=== PATIENT | female | born 1965 | race Caucasian/White ===

== ENCOUNTER 2016-12-30 03:58 | Emergency (ER) | payer MEDICAID, OTHER ==
--- NOTE | 2016-12-30 04:10 | EDM.PDOC ---
ED HPI GENERAL MEDICAL PROBLEM - General Stated Complaint: [facility] Time Seen by Provider: 12/30/16 03:58 Source of Information: Reports: Patient, EMS, RN Notes Reviewed History Limitations: Reports: No Limitations - History of Present Illness INITIAL COMMENTS - FREE TEXT/NARRATIVE: The patient is brought by EMS after the patient's was unable to wake the patient. According to the patient's , who arrived shortly after the patient, the patient has had similar responses for the past few nights. He states that she slowly wakes up in the morning, but that she was not waking up this morning. When the paramedics arrived tonight, they found her vitals to be stable, although her blood pressure was somewhat elevated. Her blood glucose was 141. She did not respond, even to sternal rubs, however, when they raised her hand up over her head, she held her arm up. Paramedics did not give any medications. The patient apparently has a history of psychiatric illness, untreated for the past 10 years. Neither the patient nor the patient's recall what the diagnoses were. Here in the ED, the patient fully woke on command. When asked her she feels, she stated that she has been feeling dizzy for the past couple of hours. She was able to provide a full history, and cooperated with my examination. - Related Data Allergies Allergy/AdvReac Type Severity Reaction Status Date / Time No Known Allergies Allergy Verified 12/30/16 04:06 Home Meds: Home Meds . [No Known Home Meds] 12/30/16 [History] Past Medical History Endocrine/Metabolic History: Reports: Obesity/BMI 30+ - Past Surgical History Female Surgical History: Reports: Tubal Ligation Social & Family History - Tobacco Use Smoking Status *Q: Never Smoker - Alcohol Use Alcohol Use History: No - Recreational Drug Use Recreational Drug Use: No - Living Situation & Occupation Living situation: Reports: , with Spouse Occupation: Employed ([employer]) ED ROS GENERAL - Review of Systems Review Of Systems: See Below Constitutional: Reports: No Symptoms HEENT: Reports: No Symptoms Respiratory: Reports: No Symptoms Cardiovascular: Reports: No Symptoms Endocrine: Reports: No Symptoms GI/Abdominal: Reports: Constipation (x 4 days) : Reports: No Symptoms Musculoskeletal: Reports: No Symptoms Skin: Reports: No Symptoms Neurological: Reports: No Symptoms Psychiatric: Reports: No Symptoms Hematologic/Lymphatic: Reports: No Symptoms Immunologic: Reports: No Symptoms ED EXAM, GENERAL - Physical Exam Exam: See Below Exam Limited By: No Limitations General Appearance: Alert, WD/WN, No Apparent Distress Eye Exam: Bilateral Eye: Normal Inspection Ears: Normal External Exam, Hearing Grossly Normal Nose: Normal Inspection, No Blood Throat/Mouth: Normal Inspection, Normal Lips, Normal Voice, No Airway Compromise Head: Atraumatic, Normocephalic Neck: Normal Inspection, Full Range of Motion Respiratory/Chest: No Respiratory Distress, Lungs Clear, Normal Breath Sounds, No Accessory Muscle Use Cardiovascular: Normal Peripheral Pulses, Regular Rate, Rhythm, No Gallop, No JVD, No Murmur, No Rub Peripheral Pulses: 4+: Radial (L), Radial (R) GI/Abdominal: Normal Bowel Sounds, Soft, Non-Tender, No Organomegaly, No Distention, No Abnormal Bruit, No Mass, Other (Obese) (Female) Exam: Deferred Rectal (Female) Exam: Deferred Back Exam: Normal Inspection, Full Range of Motion, NT Extremities: Normal Inspection, Normal Range of Motion, No Pedal Edema, Normal Capillary Refill Neurological: Alert, Oriented, CN II-XII Intact, Normal Cognition, No Motor/ Sensory Deficits Psychiatric: Normal Affect Skin Exam: Warm, Dry, Intact, Normal Color, No Rash Lymphatic: No Adenopathy EKG INTERPRETATION EKG Date: 12/30/16 Time: 04:25 Rhythm: NSR Rate (Beats/Min): 62 Aldie: LAD-Left Aldie Deviation P-Wave: Present QRS: Normal ST-T: Normal QT: Normal Comparison: NA - No Prior EKG Course - Vital Signs Last Recorded V/S: Last Vital Signs Temp 36.8 C 12/30/16 04:06 Pulse 68 12/30/16 04:06 Resp 11 L 12/30/16 04:06 BP 151/86 H 12/30/16 04:06 Pulse Ox 95 12/30/16 04:06 Orthostatic Blood Pressure [ 126/75 Standing] Orthostatic Blood Pressure [ 129/77 Sitting] Orthostatic Blood Pressure [ 111/92 Supine] - Orders/Labs/Meds Orders: Active Orders 24 hr Category Date Time Status EKG Documentation Completion [RC] STAT Care 12/30/16 04:14 Active Orthostatic Vital Signs [RC] STAT Care 12/30/16 04:16 Active Orthostatic Vital Signs [RC] STAT Care 12/30/16 05:13 Active Head wo Cont [CT] Stat Exams 12/30/16 04:15 Taken Labs: Laboratory Tests 12/30/16 12/30/16 12/30/16 Range/Units 04:35 04:35 04:35 WBC 7.08 (3.98-10.04) K/mm3 RBC 4.24 (3.98-5.22) M/mm3 Hgb 12.1 (11.2-15.7) gm/L Hct 37.1 (34.1-44.9) % MCV 87.5 (79.4-94.8) fl MCH 28.5 (25.6-32.2) pg MCHC 32.6 (32.2-35.5) g/dl RDW Std Deviation 42.7 (36.4-46.3) fL Plt Count 376 H (182-369) K/mm3 MPV 10.0 (9.4-12.3) fl Neutrophils % (Manual) 67 H (40-60) % Band Neutrophils % 0 (0-10) % Lymphocytes % (Manual) 22 (20-40) % Atypical Lymphs % 0 % Monocytes % (Manual) 10 (2-10) % Eosinophils % (Manual) 0 L (0.7-5.8) % Basophils % (Manual) 1 (0.1-1.2) Platelet Estimate Adequate Plt Morphology Comment Normal Polychromasia 1+ slight Hypochromasia 1+ slight Poikilocytosis 1+ slight Anisocytosis 1+ slight Microcytosis 1+ slight Macrocytosis 1+ slight RBC Morph Comment Abnormal Sodium 142 (136-145) mEq/L Potassium 2.9 L (3.5-5.1) mEq/L Chloride 106 (98-107) mEq/L Carbon Dioxide 25 (21-32) mEq/L Anion Gap 13.9 (5-15) BUN 10 (7-18) mg/dL Creatinine 0.9 (0.55-1.02) mg/dL Est Cr Clr Drug Dosing TNP Estimated GFR (MDRD) > 60 (>60) mL/min BUN/Creatinine Ratio 11.1 L (14-18) Glucose 120 H (74-106) mg/dL Calcium 8.3 L (8.5-10.1) mg/dL Total Bilirubin 0.4 (0.2-1.0) mg/dL AST 14 L (15-37) U/L ALT 22 (14-59) U/L Alkaline Phosphatase 64 (46-116) U/L Total Protein 7.0 (6.4-8.2) g/dl Albumin 3.5 (3.4-5.0) g/dl Globulin 3.5 gm/dL Albumin/Globulin Ratio 1.0 (1-2) TSH 3rd Generation 1.391 (0.358-3.74) uIU/mL Urine Color (Yellow) Urine Appearance (Clear) Urine pH (5.0-8.0) Ur Specific [place] (1.005-1.030) Urine Protein (Negative) Urine Glucose (UA) (Negative) Urine Ketones (Negative) Urine Occult Blood (Negative) Urine Nitrite (Negative) Urine Bilirubin (Negative) Urine Urobilinogen (0.2-1.0) Ur Leukocyte Esterase (Negative) Urine RBC (0-5) /hpf Urine WBC (0-5) /hpf Ur Epithelial Cells (0-5) /hpf Urine Bacteria (FEW) /hpf Urine Mucus (FEW) /hpf Urine HCG, Qual (NEGATIVE) Salicylates 0.6 L (2.8-20) mg/dL Urine Opiates Screen (NEGATIVE) Ur Buprenorphine Scrn (NEGATIVE) Ur Oxycodone Screen (NEGATIVE) Urine Methadone Screen (NEGATIVE) Ur Propoxyphene Screen (NEGATIVE) Acetaminophen 0 L (10-30) ug/mL Ur Barbiturates Screen (NEGATIVE) Ur Tricyclics Screen (NEGATIVE) Ur Phencyclidine Scrn (NEGATIVE) Ur Amphetamine Screen (NEGATIVE) U Methamphetamines Scrn (NEGATIVE) U Benzodiazepines Scrn (NEGATIVE) U Cocaine Metab Screen (NEGATIVE) U Marijuana (THC) Screen (NEGATIVE) Ethyl Alcohol 0.00 (0.00) gm% 12/30/16 12/30/16 12/30/16 Range/Units 04:55 04:55 04:55 WBC (3.98-10.04) K/mm3 RBC (3.98-5.22) M/mm3 Hgb (11.2-15.7) gm/L Hct (34.1-44.9) % MCV (79.4-94.8) fl MCH (25.6-32.2) pg MCHC (32.2-35.5) g/dl RDW Std Deviation (36.4-46.3) fL Plt Count (182-369) K/mm3 MPV (9.4-12.3) fl Neutrophils % (Manual) (40-60) % Band Neutrophils % (0-10) % Lymphocytes % (Manual) (20-40) % Atypical Lymphs % % Monocytes % (Manual) (2-10) % Eosinophils % (Manual) (0.7-5.8) % Basophils % (Manual) (0.1-1.2) Platelet Estimate Plt Morphology Comment Polychromasia Hypochromasia Poikilocytosis Anisocytosis Microcytosis Macrocytosis RBC Morph Comment Sodium (136-145) mEq/L Potassium (3.5-5.1) mEq/L Chloride (98-107) mEq/L Carbon Dioxide (21-32) mEq/L Anion Gap (5-15) BUN (7-18) mg/dL Creatinine (0.55-1.02) mg/dL Est Cr Clr Drug Dosing Estimated GFR (MDRD) (>60) mL/min BUN/Creatinine Ratio (14-18) Glucose (74-106) mg/dL Calcium (8.5-10.1) mg/dL Total Bilirubin (0.2-1.0) mg/dL AST (15-37) U/L ALT (14-59) U/L Alkaline Phosphatase (46-116) U/L Total Protein (6.4-8.2) g/dl Albumin (3.4-5.0) g/dl Globulin gm/dL Albumin/Globulin Ratio (1-2) TSH 3rd Generation (0.358-3.74) uIU/mL Urine Color Yellow (Yellow) Urine Appearance Slt cloudy H (Clear) Urine pH 6.0 (5.0-8.0) Ur Specific [place] > or = 1.030 (1.005-1.030) Urine Protein 1+ H (Negative) Urine Glucose (UA) Negative (Negative) Urine Ketones 2+ H (Negative) Urine Occult Blood 1+ H (Negative) Urine Nitrite Negative (Negative) Urine Bilirubin 1+ H (Negative) Urine Urobilinogen 0.2 (0.2-1.0) Ur Leukocyte Esterase Negative (Negative) Urine RBC 0-5 (0-5) /hpf Urine WBC 0-5 (0-5) /hpf Ur Epithelial Cells 0-5 (0-5) /hpf Urine Bacteria Not seen (FEW) /hpf Urine Mucus Many H (FEW) /hpf Urine HCG, Qual Negative (NEGATIVE) Salicylates (2.8-20) mg/dL Urine Opiates Screen Negative (NEGATIVE) Ur Buprenorphine Scrn Negative (NEGATIVE) Ur Oxycodone Screen Negative (NEGATIVE) Urine Methadone Screen Negative (NEGATIVE) Ur Propoxyphene Screen Negative (NEGATIVE) Acetaminophen (10-30) ug/mL Ur Barbiturates Screen Negative (NEGATIVE) Ur Tricyclics Screen Negative (NEGATIVE) Ur Phencyclidine Scrn Negative (NEGATIVE) Ur Amphetamine Screen Negative (NEGATIVE) U Methamphetamines Scrn Negative (NEGATIVE) U Benzodiazepines Scrn Negative (NEGATIVE) U Cocaine Metab Screen Negative (NEGATIVE) U Marijuana (THC) Screen Negative (NEGATIVE) Ethyl Alcohol (0.00) gm% Meds: Medications Discontinued Medications Generic Name Dose Route Start Last Admin Trade Name Freq PRN Reason Stop Dose Admin Sodium Chloride 1,000 mls @ 999 mls/hr 12/30/16 05:12 12/30/16 05:19 Normal Saline IV 12/30/16 06:12 999 mls/hr ONETIME ONE Administration Potassium Chloride 40 meq 12/30/16 05:33 12/30/16 05:40 Klor-Con M20 PO 12/30/16 05:34 40 meq ONETIME STA Administration - Re-Assessments/Exams Free Text/Narrative Re-Assessment/Exam: 12/30/16 05:06 CT of the head without contrast is read by [facility] as "Normal head/ brain CT." 12/30/16 05:13 The patient is found to be mildly orthostatic. I have ordered 1 L IV fluid, followed by repeat orthostatics. 12/30/16 05:36 The patient's potassium is depressed at 2.9. I have ordered oral potassium 40 mEq. 12/30/16 06:44 Following 1 L of IV fluid, the patient is no longer orthostatic. 12/30/16 06:46 Test results discussed with the patient and her . Today's workup is grossly unremarkable. The patient appears to have been faking that she was unresponsive. I am recommending that she follow-up with a Psychiatrist. Departure - Departure Time of Disposition: 06:47 Disposition: Home, Self-Care 01 Condition: Good Clinical Impression: Person feigning illness, Hypokalemia, Orthostasis - Discharge Information Additional Instructions: You were seen in the emergency room for appearing to be unresponsive, however, you were found to be awake, feigning unresponsiveness. Workup in the ER included blood work, a urinalysis, a urine test, a urine drug screen, an ECG, a CT scan of your head, and positional blood pressure checks. Your potassium was found to be modestly depressed at 2.9. You were given oral potassium in the ER. You were found to be mildly orthostatic, which resolved after being given IV fluid. The remainder of your workup was unremarkable. We recommend that you follow-up with a Psychiatrist. If any other problems, please do not hesitate to return to the ER. - My Orders Last 24 Hours: My Active Orders 12/30/16 04:14 EKG Documentation Completion [RC] STAT 12/30/16 04:15 Head wo Cont [CT] Stat 12/30/16 04:16 Orthostatic Vital Signs [RC] STAT 12/30/16 05:13 Orthostatic Vital Signs [RC] STAT - Assessment/Plan Last 24 Hours: My Active Orders 12/30/16 04:14 EKG Documentation Completion [RC] STAT 12/30/16 04:15 Head wo Cont [CT] Stat 12/30/16 04:16 Orthostatic Vital Signs [RC] STAT 12/30/16 05:13 Orthostatic Vital Signs [RC] STAT
[2016-12-30 04:11] VITALS: BP 151/86
[2016-12-30] MEDS ORDERED: Sodium Chloride 0.9% 1,000 ML IV ONE (05:12)
[2016-12-30 05:18] LABS: ACETAMINOPHEN 0 ug/mL (10-30)
[2016-12-30] MEDS ORDERED: Potassium Chloride 20 MEQ Tab.ER PO STA (05:33)
--- NOTE | 2016-12-31 10:04 | CT ---
Head CT Technique: Multiple axial sections through the brain were obtained. Intravenous contrast was not utilized. Comparison: No previous intracranial imaging. Findings: Ventricles along the basal cisterns and sulci over the convexities are within normal limits for the patient's age. No abnormal parenchymal densities are seen. No evidence of intracranial hemorrhage. No midline shift or mass effect is seen. Bone window settings were reviewed which show the visualized sinuses do appear clear. No acute calvarial abnormality is seen. Impression: 1. No acute intracranial abnormality is identified. Diagnostic code #1 I agree with preliminary report issued by [facility] ([facility] report finalized on 12/30/16, 6:03 AM Central Time)
== END 2016-12-30 07:04 | disposition home or self-care (01) ==
LOC: JD.ED 03:58
DX: E87.6 Hypokalemia (principal); I95.1 Orthostatic hypotension; E66.9 Obesity, unspecified; Z76.5 Malingerer [conscious simulation]; Z98.51 Tubal ligation status; F41.0 Panic disorder [episodic paroxysmal anxiety]; Z98.890 Other specified postprocedural states
CPT/HCPCS: 36415; 70450; 71010; 80053; 80306; 81001; 81025; 84443; 85025; 85379; 86140; 93005; 96360; 96361; 96365; 96375; 99285; A9270; G0480; J2060; J3480; J7040; P9612; 99284

== ENCOUNTER 2016-12-30 21:02 | Emergency (ER) | payer OTHER ==
[2016-12-30 21:14] VITALS: BP 148/78
[2016-12-30] MEDS ORDERED: Sodium Chloride 0.9% 1,000 ML IV SCH (21:30)
--- NOTE | 2016-12-30 21:33 | EDM.PDOC ---
ED HPI GENERAL MEDICAL PROBLEM - General Chief Complaint: Respiratory Problem Stated Complaint: HAVING A TOUGH TIME BREATHING/FEELING FAINT Time Seen by Provider: 12/30/16 21:26 Source of Information: Reports: Patient History Limitations: Reports: No Limitations - History of Present Illness INITIAL COMMENTS - FREE TEXT/NARRATIVE: 51-year-old female attends the ED tonight with hyperventilation syndrome. She states that she feels generally unwell generally weak. She states she did drink lots of water today and some tea but did not have any electrolytes anything she ate or drank much today. He was seen through the ED last night had complete workup by Dr. Hoskins including CT of the brain. All was normal. When she came to the ED her respiratory rate was 21-29/m obvious hyperventilation syndrome and the nurse was able to coax her into slowing her breathing write down. This improved her numbness tingling in her feeling like she was going to faint or pass out. Patient has a underlying history of psychiatric illness and was able to schizophrenia when she was younger hasn't been on medication for about 10 years. She states she is sleeping okay. Family members i.e. a daughter and indicate that she is under a good deal of stress as of recent with a pulse friend developing cancer and a family member being ill. She does not cope well with these things. No recent travels history. Sats were as low as 93% at times and she is a nonsmoker. She was claiming of course shortness of breath. Denies cough or sputum production. No fever or chills. 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 Onset: Sudden Onset Date: 12/30/16 Onset Time: 21:00 Duration: Minutes: Location: Reports: Generalized Quality: Reports: Same as Previous Episode Severity: Moderate Improves with: Reports: None, Other (Did feel better once the nurse was able to coax her into slowing her breathing rate down.) Worsens with: Reports: Movement Context: Denies: Activity, Exercise, Lifting, Sick Contact, Trauma, Other Associated Symptoms: Reports: Loss of Appetite, Malaise, Shortness of Breath, Weakness. Denies: Confusion, Chest Pain, Cough, cough w sputum, Diaphoresis, Fever/Chills, Headaches, Nausea/Vomiting, Rash, Seizure Treatments [employer]: Reports: Other (see below) (None.) Chest Pain Score (Numeric/FACES): 4 - Related Data Allergies Allergy/AdvReac Type Severity Reaction Status Date / Time No Known Allergies Allergy Verified 12/30/16 04:06 Home Meds: Home Meds ALPRAZolam [Xanax] 0.25 mg PO BID #24 tablet 12/30/16 [Rx] Citalopram [Celexa] 20 mg PO DAILY #30 tablet 12/30/16 [Rx] Past Medical History - Past Health History Medical/Surgical History: Denies Medical/Surgical History Other Psychiatric History: Pt has history of mental illness. Cannot remember diagnoses. Endocrine/Metabolic History: Reports: Obesity/BMI 30+ - Past Surgical History Female Surgical History: Reports: Tubal Ligation Social & Family History - Tobacco Use Smoking Status *Q: Never Smoker - Caffeine Use Caffeine Use: Reports: Tea - Recreational Drug Use Recreational Drug Use: No - Living Situation & Occupation Living situation: Reports: , with Spouse Occupation: Employed ([employer]) ED ROS GENERAL - Review of Systems Review Of Systems: See Below Constitutional: Reports: Malaise, Weakness, Fatigue, Decreased Appetite. Denies : Fever, Chills, Weight Loss HEENT: Reports: Other Respiratory: Reports: Shortness of Breath. Denies: No Symptoms, Wheezing, Pleuritic Chest Pain, Cough, Sputum, Hemoptysis, Other Cardiovascular: Reports: Lightheadedness, Palpitations. Denies: Chest Pain, Blood Pressure Problem, Claudication, Dyspnea on Exertion, Edema, Orthopnea Endocrine: Reports: Fatigue GI/Abdominal: Reports: Decreased Appetite. Denies: Abdominal Pain, Anorexia, Black Stool, Difficulty Swallowing, Distension, Flatus, Hematemesis, Hematochezia, Mucous in Stool, Nausea : Reports: Frequency Musculoskeletal: Reports: No Symptoms Skin: Reports: No Symptoms Neurological: Reports: Confusion, Dizziness, Numbness, Paresthesia (Upper extremities and periorally.), Tingling, Difficulty Walking, Weakness. Denies: Headache, Pre-Existing Deficit ( Perioral paresthesias in hands and arms.), Seizure, Trouble Speaking, Gait Disturbance Psychiatric: Reports: Anxiety Hematologic/Lymphatic: Reports: No Symptoms Immunologic: Reports: No Symptoms ED EXAM, GENERAL - Physical Exam Exam: See Below Exam Limited By: No Limitations General Appearance: Alert, WD/WN, Mild Distress (Hyperventilating.) Eye Exam: Bilateral Eye: Normal Inspection Throat/Mouth: Normal Inspection, Normal Lips, Normal Teeth, Normal Oropharynx Head: Atraumatic, Normocephalic Neck: Normal Inspection, Supple, Non-Tender, Full Range of Motion. No: Carotid Bruit, Lymphadenopathy (L), Lymphadenopathy (R) Respiratory/Chest: Lungs Clear, Normal Breath Sounds, No Accessory Muscle Use, Respiratory Distress (Mild tachypnea 21-28/m i.e. hyperventilation syndrome.). No: Crackles, Rales, Rhonchi, Wheezing, Accessory Muscle Use, Retractions Cardiovascular: Normal Peripheral Pulses, Regular Rate, Rhythm, No Edema, No Murmur Peripheral Pulses: 2+: Posterior Tibial (L), Posterior Tibial (R), Dorsalis Pedis (L), Dorsalis Pedis (R) GI/Abdominal: Normal Bowel Sounds, Soft, Non-Tender, No Organomegaly, No Distention, No Abnormal Bruit Back Exam: Normal Inspection, Full Range of Motion. No: CVA Tenderness (L), CVA Tenderness (R) Extremities: Normal Inspection, Normal Range of Motion, Non-Tender, No Pedal Edema, Normal Capillary Refill Neurological: Alert, Oriented, CN II-XII Intact, Normal Cognition, Normal Gait, Normal Reflexes, No Motor/Sensory Deficits Psychiatric: Anxious. No: Tearful Skin Exam: Warm, Dry, Intact, Normal Color, No Rash Lymphatic: No Adenopathy Course - Vital Signs Last Recorded V/S: Last Vital Signs Temp 37.2 C 12/30/16 21:13 Pulse 72 12/30/16 21:13 Resp 28 H 12/30/16 21:13 BP 148/78 H 12/30/16 21:13 Pulse Ox 98 12/30/16 21:13 - Orders/Labs/Meds Orders: Active Orders 24 hr Category Date Time Status Chest 1V Frontal [CR] Stat Exams 12/30/16 22:37 Taken Sodium Chloride 0.9% [Normal Saline] 1,000 ml Med 12/30/16 21:30 Active IV ASDIRECTED Medication Orders Sodium Chloride (Normal Saline) 1,000 mls @ 999 mls/hr IV ASDIRECTED KALIN Last Admin: 12/30/16 21:41 Dose: 999 mls/hr Labs: Laboratory Tests 12/30/16 12/30/16 12/30/16 Range/Units 21:55 21:55 21:55 WBC 7.07 (3.98-10.04) K/mm3 RBC 3.80 L (3.98-5.22) M/mm3 Hgb 10.9 L (11.2-15.7) gm/L Hct 33.8 L (34.1-44.9) % MCV 88.9 (79.4-94.8) fl MCH 28.7 (25.6-32.2) pg MCHC 32.2 (32.2-35.5) g/dl RDW Std Deviation 44.5 (36.4-46.3) fL Plt Count 348 (182-369) K/mm3 MPV 9.8 (9.4-12.3) fl Neutrophils % (Manual) 72 H (40-60) % Band Neutrophils % 1 (0-10) % Lymphocytes % (Manual) 19 L (20-40) % Atypical Lymphs % 0 % Monocytes % (Manual) 8 (2-10) % Eosinophils % (Manual) 0 L (0.7-5.8) % Basophils % (Manual) 0 L (0.1-1.2) Platelet Estimate Adequate RBC Morph Comment Normal D-Dimer, Quantitative 0.33 (0.19-0.59) mg/L Sodium 140 (136-145) mEq/L Potassium 2.8 L (3.5-5.1) mEq/L Chloride 106 (98-107) mEq/L Carbon Dioxide 25 (21-32) mEq/L Anion Gap 11.8 (5-15) BUN 12 (7-18) mg/dL Creatinine 1.0 (0.55-1.02) mg/dL Est Cr Clr Drug Dosing 61.23 mL/min Estimated GFR (MDRD) 59 (>60) mL/min BUN/Creatinine Ratio 12.0 L (14-18) Glucose 104 (74-106) mg/dL Calcium 8.0 L (8.5-10.1) mg/dL Total Bilirubin 0.4 (0.2-1.0) mg/dL AST 16 (15-37) U/L ALT 24 (14-59) U/L Alkaline Phosphatase 58 (46-116) U/L C-Reactive Protein < 0.2 (<1.0) mg/dL Total Protein 6.7 (6.4-8.2) g/dl Albumin 3.4 (3.4-5.0) g/dl Globulin 3.3 gm/dL Albumin/Globulin Ratio 1.0 (1-2) Meds: Medications Generic Name Dose Route Start Last Admin Trade Name Bryn PRN Reason Stop Dose Admin Sodium Chloride 1,000 mls @ 999 mls/hr 12/30/16 21:30 12/30/16 21:41 Normal Saline IV 999 mls/hr ASDIRECTED KALIN Administration Discontinued Medications Generic Name Dose Route Start Last Admin Trade Name Freq PRN Reason Stop Dose Admin Potassium Chloride 10 meq/ 100 mls @ 100 mls/hr 12/30/16 22:49 12/30/16 22:53 Premix IV 12/30/16 23:48 100 mls/hr ONETIME ONE Administration Lorazepam 1 mg 12/30/16 21:41 12/30/16 21:50 Ativan IVPUSH 12/30/16 21:42 1 mg ONETIME ONE Administration - Radiology Interpretation Free Text/Narrative:: 51-year-old female presents to the ED with hyperventilation syndrome i.e. perioral and upper extremity paresthesias generalized weakness shortness of breath due to hyperventilation. This happened last night as well. She has a history of underlying psychiatric illness and is labeled with schizophrenia many years ago. At present she has sinus symptoms of generalized anxiety disorder with panic attack. She states that overall she is sleeping well. She did drink a lot of water today and may be hyponatremic. I note her O2 sats are only 93-94% once we sort her breathing rate down. We'll therefore have a d- dimer checked although she is on her feet most the time and has no recent travel history. Lungs are clear to auscultation percussion. AP is 144/80 heart rate is coming down and is now 65 per minute. Plan normal saline IV at open Ativan 1 mg IV. - Re-Assessments/Exams Free Text/Narrative Re-Assessment/Exam: 12/30/16 22:50 labs are back normal white count at 7.07 with 72% neutrophils and 1% bands. Hemoglobin 10.9 which is slightly low hematocrit is 33.8. Platelet are normal. D-dimer is 0.33 sodium 140 potassium low at 2.8.6 anion gap is 11.8 calcium 8.0. Plan I'm going to go ahead and give her 10 mg of potassium IV over half hour. 12/30/16 23:55: Has completed her potassium infusion. She'll be discharged to home with plan to use Xanax 0.5 mg a.m. and bedtime for the next 12 days. Also advised to start citalopram 20 mg once daily in the mornings to prevent anxiety reactions. Departure - Departure Time of Disposition: 23:55 Disposition: Home, Self-Care 01 Condition: Fair Clinical Impression: Hyperventilation syndrome, Panic attacks, Hypokalemia due to inadequate potassium intake - Discharge Information Prescriptions: ALPRAZolam [Xanax] 0.25 mg PO BID #24 tablet Citalopram [Celexa] 20 mg PO DAILY #30 tablet Referrals: PCP,None [Primary Care Provider] - Forms: ED Department Discharge Additional Instructions: Evaluation emergency room tonight in regards to hyperventilation syndrome. This was caused by a panic attack or anxiety attack. To something that you have little to no control over. Is due to a deficiency of a hormone within the brain. It often occurs when we are under more stress than normal ,sleeping poorly etc. I reviewed all the lab tests done last night as well as CT scan of the brain and was proved to be normal. Tonight once her breathing was settle Bruce slow down and her symptoms got better . You're given Ativan and a liter of fluids while in the ED to help bring the anxiety tach under control. Treatment at home I would suggest is to start a medication called Xanax 0.5 mg first thing in the morning and one at bedtime to bring anxiety under control in the short-term. To try and prevent these similar type of attack she had the last few nights. He cannot stand Xanax long-term as it is potentially addicting. Short-term it is okay. Therefore the other medication is called citalopram 20 mg once a day in the morning which is for anxiety control. However this medicine will take about 12-14 days to start to work. Long-term this will keep the anxiety under control. Suggest using this medication for a minimum of 3 months. Lab work also revealed your blood potassium level is still quite low at 2.8 was 2.9 yesterday. Normal is 3.5-4.5. This is occurred from not taking in adequate nutrition. Just drinking Gatorade or Powerade as this will replenish her potassium level. You're given in increments of potassium intravenously today to get you up over 3. This may help with nausea and weakness that you're experiencing. Suggest follow-up with a provider on the other side of the hospital and the family medicine unit. Perhaps Juanis Tran would be a good provider to follow-up with. Please call [phone] to arrange an appointment for follow-up with her in the next week to 10 days. - My Orders Last 24 Hours: My Active Orders 12/30/16 21:30 Sodium Chloride 0.9% [Normal Saline] 1,000 ml IV ASDIRECTED 12/30/16 22:37 Chest 1V Frontal [CR] Stat - Assessment/Plan Last 24 Hours: My Active Orders 12/30/16 21:30 Sodium Chloride 0.9% [Normal Saline] 1,000 ml IV ASDIRECTED 12/30/16 22:37 Chest 1V Frontal [CR] Stat
[2016-12-30] MEDS ORDERED: LORazepam 2 MG/ML MDV IVPUSH ONE (21:41)
[2016-12-30] MEDS ORDERED: Potassium Chloride 10 MEQ in Premix Bag 1 BAG IV ONE (22:49)
--- NOTE | 2016-12-31 10:04 | CR ---
Chest: Portable view of the chest was obtained. Comparison: No previous chest x-ray. Heart size and mediastinum are within normal limits for portable technique. Lungs are clear. Bony structures are grossly intact. Impression: 1. Nothing acute is identified on portable chest x-ray. Diagnostic code #1
== END 2016-12-31 00:07 | disposition home or self-care (01) ==
LOC: JD.ED 21:02
DX: F41.0 Panic disorder [episodic paroxysmal anxiety] (principal); E87.6 Hypokalemia; E66.9 Obesity, unspecified; Z98.51 Tubal ligation status; Z98.890 Other specified postprocedural states
CPT/HCPCS: 36415; 71010; 80053; 85025; 85379; 86140; 96361; 96365; 96375; 99285; J2060; J3480; J7040; 99284

== ENCOUNTER 2017-05-14 14:03 | Emergency (ER) | payer OTHER ==
[2017-05-14 14:23] VITALS: BP 157/86
[2017-05-14] MEDS ORDERED: Sodium Chloride 0.9% 10 ML Syringe FLUSH PRN (14:35)
--- NOTE | 2017-05-14 14:43 | EDM.PDOC ---
ED HPI GENERAL MEDICAL PROBLEM - General Chief Complaint: Behavioral/Psych Stated Complaint: CONFUSION Time Seen by Provider: 05/14/17 14:21 Source of Information: Reports: Patient, Family ( daughter) History Limitations: Reports: Other (Confusion) - History of Present Illness INITIAL COMMENTS - FREE TEXT/NARRATIVE: Patient is a 51-year-old female who presents to the ED with concerns of increased confusion. Patient has a history of confusion and other psych disorders. states as of recent patient has been more confused. Unable to recall recent events. Per triage nurse patient did ambulate into the ED with no issues. Upon laying in bed patient complained of not being able to lift her legs or arms. Patient is supposed be taking alprazolam and Celexa to which the patient has not been because it made her sleepy. She is not following anybody on a routine basis for all her medical needs. It is quite difficult in obtaining history of present illness and also review of systems. Patient appears to understand what the questions are but only answers intermittently. She denies any recreational drug use, smoking, or alcohol use. - Related Data Allergies Allergy/AdvReac Type Severity Reaction Status Date / Time No Known Allergies Allergy Verified 05/14/17 14:11 Home Meds: Home Meds Citalopram Hydrobromide [Celexa] 20 mg PO QAM #30 tablet 05/14/17 [Rx] Haloperidol [Haldol] 2 mg PO Q12HR #28 tab 05/14/17 [Rx] Past Medical History - Past Health History Medical/Surgical History: Denies Medical/Surgical History Other Psychiatric History: Pt has history of mental illness. Cannot remember diagnoses. Endocrine/Metabolic History: Reports: Obesity/BMI 30+ - Past Surgical History Female Surgical History: Reports: Tubal Ligation Social & Family History - Tobacco Use Smoking Status *Q: Never Smoker Second Hand Smoke Exposure: No - Caffeine Use Caffeine Use: Reports: None - Recreational Drug Use Recreational Drug Use: No - Living Situation & Occupation Living situation: Reports: , with Spouse Occupation: Employed ([employer]) ED ROS GENERAL - Review of Systems Review Of Systems: Unable To Obtain (Difficult to obtain.) - Physical Exam Exam: See Below Exam Limited By: Altered Mental Status General Appearance: Alert, WD/WN, No Apparent Distress Eye Exam: Bilateral Eye: EOMI, PERRL Ears: Hearing Grossly Normal Nose: Normal Inspection Throat/Mouth: Normal Voice, No Airway Compromise, Other (Patient is smiling during examination and questioning.) Head Exam: Atraumatic, Normocephalic Neck: Normal Inspection, Supple Respiratory/Chest: No Respiratory Distress, Lungs Clear, Normal Breath Sounds, No Accessory Muscle Use Cardiovascular: Normal Peripheral Pulses, Regular Rate, Rhythm GI/Abdominal: Normal Bowel Sounds, Soft, Non-Tender Neuro Exam (Abbreviated): Alert, CN II-XII Intact, Confused, Slow to Respond, Other (Patient able to perform finger-nose and rapid alternating movements. No facial droop or slurred speech present. Patient they will the left both her upper and lower extremities with no obvious difficulties. With further neuro testing patient is having difficulty in following commands.) Back Exam: Normal Inspection. No: CVA Tenderness (L), CVA Tenderness (R) Extremities: Normal Inspection, Normal Range of Motion, No Pedal Edema, Normal Capillary Refill, Other (Patient is able to move all extremities. No obvious weakness noted to the upper and lower extremities in comparison to the opposite side.) Psychiatric: Normal Affect, Normal Mood Skin Exam: Warm, Dry, Intact, Normal Color Course - Vital Signs Last Recorded V/S: Last Vital Signs Temp 97.1 F 05/14/17 14:12 Pulse 74 05/14/17 14:12 Resp 15 05/14/17 14:12 BP 157/86 H 05/14/17 14:12 Pulse Ox 100 05/14/17 14:12 - Orders/Labs/Meds Orders: Active Orders 24 hr Category Date Time Status EKG Documentation Completion [RC] STAT Care 05/14/17 14:44 Active Peripheral IV Care [RC] . DIRECTED Care 05/14/17 14:36 Active Head wo Cont [CT] Stat Exams 05/14/17 14:35 Taken Peripheral IV Insertion Adult [OM.PC] Stat Oth 05/14/17 14:35 Ordered Labs: Laboratory Tests 05/14/17 05/14/17 05/14/17 Range/Units 14:55 14:55 16:03 WBC 9.15 (3.98-10.04) K/mm3 RBC 4.36 (3.98-5.22) M/mm3 Hgb 12.8 (11.2-15.7) gm/L Hct 38.8 (34.1-44.9) % MCV 89.0 (79.4-94.8) fl MCH 29.4 (25.6-32.2) pg MCHC 33.0 (32.2-35.5) g/dl RDW Std Deviation 45.0 (36.4-46.3) fL Plt Count 459 H (182-369) K/mm3 MPV 10.1 (9.4-12.3) fl Neut % (Auto) 73.3 H (34.0-71.1) % Lymph % (Auto) 17.8 L (19.3-51.7) % Tucker % (Auto) 8.3 (4.7-12.5) % Eos % (Auto) 0 L (0.7-5.8) Baso % (Auto) 0.5 (0.1-1.2) % Neut # (Auto) 6.70 H (1.56-6.13) K/mm3 Lymph # (Auto) 1.63 (1.18-3.74) K/mm3 Tucker # (Auto) 0.76 H (0.24-0.36) K/mm3 Eos # (Auto) 0.00 L (0.04-0.36) K/mm3 Baso # (Auto) 0.05 (0.01-0.08) K/mm3 Sodium 142 (136-145) mEq/L Potassium 4.1 (3.5-5.1) mEq/L Chloride 107 (98-107) mEq/L Carbon Dioxide 25 (21-32) mEq/L Anion Gap 14.1 (5-15) BUN 13 (7-18) mg/dL Creatinine 1.0 (0.55-1.02) mg/dL Est Cr Clr Drug Dosing TNP Estimated GFR (MDRD) 59 (>60) mL/min BUN/Creatinine Ratio 13.0 L (14-18) Glucose 128 H (74-106) mg/dL Calcium 9.3 (8.5-10.1) mg/dL Total Bilirubin 0.4 (0.2-1.0) mg/dL AST 16 (15-37) U/L ALT 20 (14-59) U/L Alkaline Phosphatase 72 (46-116) U/L Total Protein 7.7 (6.4-8.2) g/dl Albumin 3.8 (3.4-5.0) g/dl Globulin 3.9 gm/dL Albumin/Globulin Ratio 1.0 (1-2) TSH 3rd Generation 1.119 (0.358-3.74) uIU/mL Urine Color (Yellow) Urine Appearance (Clear) Urine pH (5.0-8.0) Ur Specific Hammond (1.005-1.030) Urine Protein (Negative) Urine Glucose (UA) (Negative) Urine Ketones (Negative) Urine Occult Blood (Negative) Urine Nitrite (Negative) Urine Bilirubin (Negative) Urine Urobilinogen (0.2-1.0) Ur Leukocyte Esterase (Negative) Urine RBC (0-5) /hpf Urine WBC (0-5) /hpf Ur Epithelial Cells (0-5) /hpf Amorphous Sediment (NOT SEEN) /hpf Urine Bacteria (FEW) /hpf Urine Mucus (FEW) /hpf Urine Opiates Screen Negative (NEGATIVE) Ur Buprenorphine Scrn Negative (NEGATIVE) Ur Oxycodone Screen Negative (NEGATIVE) Urine Methadone Screen Negative (NEGATIVE) Ur Propoxyphene Screen Negative (NEGATIVE) Ur Barbiturates Screen Negative (NEGATIVE) Ur Tricyclics Screen Negative (NEGATIVE) Ur Phencyclidine Scrn Negative (NEGATIVE) Ur Amphetamine Screen Negative (NEGATIVE) U Methamphetamines Scrn Negative (NEGATIVE) U Benzodiazepines Scrn Negative (NEGATIVE) U Cocaine Metab Screen Negative (NEGATIVE) U Marijuana (THC) Screen Negative (NEGATIVE) Ethyl Alcohol 0.00 (0.00) gm% 05/14/ Range/Units 16:03 WBC (3.98-10.04) K/mm3 RBC (3.98-5.22) M/mm3 Hgb (11.2-15.7) gm/L Hct (34.1-44.9) % MCV (79.4-94.8) fl MCH (25.6-32.2) pg MCHC (32.2-35.5) g/dl RDW Std Deviation (36.4-46.3) fL Plt Count (182-369) K/mm3 MPV (9.4-12.3) fl Neut % (Auto) (34.0-71.1) % Lymph % (Auto) (19.3-51.7) % Tucker % (Auto) (4.7-12.5) % Eos % (Auto) (0.7-5.8) Baso % (Auto) (0.1-1.2) % Neut # (Auto) (1.56-6.13) K/mm3 Lymph # (Auto) (1.18-3.74) K/mm3 Tucker # (Auto) (0.24-0.36) K/mm3 Eos # (Auto) (0.04-0.36) K/mm3 Baso # (Auto) (0.01-0.08) K/mm3 Sodium (136-145) mEq/L Potassium (3.5-5.1) mEq/L Chloride (98-107) mEq/L Carbon Dioxide (21-32) mEq/L Anion Gap (5-15) BUN (7-18) mg/dL Creatinine (0.55-1.02) mg/dL Est Cr Clr Drug Dosing Estimated GFR (MDRD) (>60) mL/min BUN/Creatinine Ratio (14-18) Glucose (74-106) mg/dL Calcium (8.5-10.1) mg/dL Total Bilirubin (0.2-1.0) mg/dL AST (15-37) U/L ALT (14-59) U/L Alkaline Phosphatase (46-116) U/L Total Protein (6.4-8.2) g/dl Albumin (3.4-5.0) g/dl Globulin gm/dL Albumin/Globulin Ratio (1-2) TSH 3rd Generation (0.358-3.74) uIU/mL Urine Color Yellow (Yellow) Urine Appearance Slt cloudy H (Clear) Urine pH 6.0 (5.0-8.0) Ur Specific Hammond > or = 1.030 (1.005-1.030) Urine Protein Trace H (Negative) Urine Glucose (UA) Negative (Negative) Urine Ketones Trace H (Negative) Urine Occult Blood Negative (Negative) Urine Nitrite Negative (Negative) Urine Bilirubin Negative (Negative) Urine Urobilinogen 0.2 (0.2-1.0) Ur Leukocyte Esterase Negative (Negative) Urine RBC 0-5 (0-5) /hpf Urine WBC 0-5 (0-5) /hpf Ur Epithelial Cells 0-5 (0-5) /hpf Amorphous Sediment Moderate H (NOT SEEN) /hpf Urine Bacteria Rare (FEW) /hpf Urine Mucus Many H (FEW) /hpf Urine Opiates Screen (NEGATIVE) Ur Buprenorphine Scrn (NEGATIVE) Ur Oxycodone Screen (NEGATIVE) Urine Methadone Screen (NEGATIVE) Ur Propoxyphene Screen (NEGATIVE) Ur Barbiturates Screen (NEGATIVE) Ur Tricyclics Screen (NEGATIVE) Ur Phencyclidine Scrn (NEGATIVE) Ur Amphetamine Screen (NEGATIVE) U Methamphetamines Scrn (NEGATIVE) U Benzodiazepines Scrn (NEGATIVE) U Cocaine Metab Screen (NEGATIVE) U Marijuana (THC) Screen (NEGATIVE) Ethyl Alcohol (0.00) gm% Meds: Medications Discontinued Medications Generic Name Dose Route Start Last Admin Trade Name Freq PRN Reason Stop Dose Admin Haloperidol Lactate 2 mg 05/14/17 16:19 05/14/17 16:31 Haldol IM 05/14/17 16:20 2 mg ONETIME ONE Administration Sodium Chloride 10 ml 05/14/17 14:35 05/14/17 15:58 Saline Flush FLUSH 10 ml ASDIRECTED PRN Administration Keep Vein Open - Re-Assessments/Exams Free Text/Narrative Re-Assessment/Exam: On examination patient is a poor historian and appears to be confused. I do believe when asking questions patient is picking and choosing which questions to answer. She complained of not being able to move her lower extremities upon examination. During our conversation and further history taking patient was moving her lower extremities with no difficulties. Again the patient walked into the ED to room with no difficulties. She really has no complaints of this time. of 10 years is present concerned of increased confusion. Patient does have a history of untreated schizophrenia. 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 This is a decreased response surroundings, immobility, and mutism. Initial labs and studies include CBC, chem 14, EKG, head CT without contrast, TSH, urine drug tox, serum EtOH, and UA. 05/14/17 16:[address] Jovel. Suggests starting with haldol 2mg PO or IM. This may reverse the psychosis. Can discharge on haldol and prior antidepressants that worked for the patient. Awaiting results of Urine Drug Toxicology. Ordered haldol 2mg IM. CT of the head no acute intracranial process. UA sample was obtained via in and out cath. Per nursing states patient was able to hold legs up and move freely with no issues. 05/14/17 16:28 When I spoke to the patient. Patient is alert. Discussed with patient about plan layed out by Dr. Jovel. Patient states she's been excessively tired recently. Does not admit to being depressed. Asked if she feels safe at home to which the patient states yes. States her treats her well. Again asked the patient if she heres any voices or seeing things the patient stopped answering questions. UA and drug tox are pending. UA negative for concerning finding. Urine drug tox negative. 05/14/17 17:39 Reassessment, patient sitting up in bed. Per nursing staff she got up and walked on her own accord with no difficulties for 5 minutes. Again discussed plan with patient. She is conversing more after the above medication. Denies hallucinations, vision changes, chest pain, SOB, nausea/vomiting, abdominal pain, dysuria, numbness tingling, or any additional complaints. I have discussed with her about starting Celexa and Haldol. She agrees with this plan. She will see psych provider at [facility] or make an appointment with Dr. Joevl for further psychiatric evaluation. In addition she will follow-up with her PCP this coming week for reevaluation. Patient has no additional questions or concerns and is in agreement of treatment plan. Departure - Departure Time of Disposition: 18:45 Disposition: Home, Self-Care 01 Condition: Good Clinical Impression: Depressive disorder Psychosis Qualifiers: Psychosis type: schizophrenia Schizophrenia type: undifferentiated schizophrenia Qualified Code(s): F20.3 - Undifferentiated schizophrenia Depression Qualifiers: Depression Type: unspecified Qualified Code(s): F32.9 - Major depressive disorder, single episode, unspecified Schizophrenia Qualifiers: Schizophrenia type: unspecified Qualified Code(s): F20.9 - Schizophrenia, unspecified - Discharge Information Prescriptions: Haloperidol [Haldol] 2 mg PO Q12HR #28 tab Citalopram Hydrobromide [Celexa] 20 mg PO QAM #30 tablet Instructions: Psychosis Referrals: Chalo Jovel MD [Physician] - [facility] [Outside] Lefty Manuel [Physician] - Forms: ED Department Discharge Additional Instructions: As discussed will start you on Celexa 20 mg every day and also Haldol 2 mg every 12 hours. Follow-up with primary care provider Dr. Mayo at the [facility] in [place] in one week for reevaluation, call and make an appt. Call and make an appointment to be seen by psych provider at [facility] and/or with Dr. Jovel with telemedicine. Return to ED if you develop any new or worsening symptoms. Refrain from any alcohol. - My Orders Last 24 Hours: My Active Orders 05/14/17 14:35 Head wo Cont [CT] Stat Peripheral IV Insertion Adult [OM.PC] Stat 05/14/17 14:36 Peripheral IV Care [RC] . DIRECTED 05/14/17 14:44 EKG Documentation Completion [RC] STAT - Assessment/Plan Last 24 Hours: My Active Orders 05/14/17 14:35 Head wo Cont [CT] Stat Peripheral IV Insertion Adult [OM.PC] Stat 05/14/17 14:36 Peripheral IV Care [RC] . DIRECTED 05/14/17 14:44 EKG Documentation Completion [RC] STAT
[2017-05-14] MEDS ORDERED: Haloperidol Lactate 5 MG/ML SDV IM ONE (16:19)
--- NOTE | 2017-05-16 07:59 | CT ---
Head CT Technique: Multiple axial sections through the brain were obtained. Intravenous contrast was not utilized. Comparison: Prior head CT exam of 12/30/16. Findings: Ventricles along with basal cisterns and sulci over the convexities are within normal limits for the patient's age. No abnormal parenchymal densities are seen. No evidence of intracranial hemorrhage. No midline shift or mass effect is seen. Bone window settings were reviewed which show no acute calvarial abnormality. Visualized sinuses are clear. Impression: 1. No acute intracranial abnormality is identified. No significant change is seen from prior head CT study. Diagnostic code #1 I agree with preliminary report issued by [facility] ([facility] report finalized on 05/14/17, 5:14 PM Central Time)
== END 2017-05-14 18:45 | disposition home or self-care (01) ==
LOC: JD.ED 14:03
DX: F32.9 Major depressive disorder, single episode, unspecified (principal); F23 Brief psychotic disorder
CPT/HCPCS: 36415; 70450; 80053; 80306; 81001; 84443; 85025; 93005; 96372; 99285; G0480; J1630; J7050; P9612; 93010; 99284